=== PATIENT | male | born 1980 | race Caucasian/White ===

== ENCOUNTER 2022-01-04 10:27 | Outpatient (CLI) | payer OTHER, SELFPAY ==
--- NOTE | 2022-01-04 12:36 | W.ANESCHARGE ---
Anesthesia Charges Start Date/Time Anesthesia Start Date: 01/04/22 Anesthesia Start Time: 12:05 Stop Date/Time Anesthesia Stop Date: 01/04/22 Anesthesia Stop Time: 12:35 Summary Emergency: No
--- NOTE | 2022-01-04 12:40 | W.ANESCHARGE ---
Anesthesia Charges Start Date/Time Anesthesia Start Date: 01/04/22 Anesthesia Start Time: 12:05 Stop Date/Time Anesthesia Stop Date: 01/04/22 Anesthesia Stop Time: 12:35 Summary Emergency: No
== END 2022-01-04 10:28 | disposition home or self-care (01) ==
PROVIDERS: PCP Nurse Practitioner Family; Visit Provider Internal Medicine Gastroenterology
DX: K92.1 Melena (principal); K57.30 Diverticulosis of large intestine without perforation or abscess without bleeding; K64.8 Other hemorrhoids
CPT/HCPCS: 45378; 812